=== PATIENT | female | born 1960 | race Caucasian/White ===

== ENCOUNTER → 2016-04-16 | Outpatient (CLI) | payer OTHER ==
[2015-02-05 23:30] VITALS: BP 129/82
[2016-04-16 11:02] LABS: ALBUMIN 3.8 g/dL (3.4-5.0); CALCIUM 9.5 mg/dL (8.5-10.1); CREATININE 0.9 mg/dL (0.6-1.0); FREE T4 0.95 ng/dL (0.76-1.46); GFR 65.2; POTASSIUM 4.4 mmol/L (3.5-5.1); TOTAL BILIRUBIN 0.2 mg/dL (0.2-1.0); TOTAL PROTEIN 7.5 g/dL (6.4-8.2)
[2016-04-16 11:05] LABS: CHOLESTEROL/HDL RATIO 4.9
== END | disposition home or self-care (01) ==
LOC: LAB 09:48
PROVIDERS: ATTEND Nurse Practitioner Family
DX: E11.9 Type 2 diabetes mellitus without complications (principal); E03.9 Hypothyroidism, unspecified
CPT/HCPCS: 36415; 80053; 80061; 83036; 84439; 84443

== ENCOUNTER 2017-02-04 05:10 | Emergency (ER) | payer SELFPAY ==
[~2017-02-04] VITALS: Ht 162.6 cm; Wt 107.7 kg
[2017-02-04 06:22] VITALS: BP 118/86
--- NOTE | 2017-02-04 07:33 | RAD ---
PA and lateral views of the chest were obtained. History: Chest pain Comparison: none The heart and pulmonary vasculature appear within normal limits. The lungs are clear. The pleural margins are clear. Impression: 1. No acute chest process is seen.
--- NOTE | 2017-02-04 07:52 | PHYS DOC ---
Past Medical History Past Medical History: Fibromyalgia, High Cholesterol, Hypertension, Other Additional Past Medical Histor: thyroid issues, chronic back pain Past Surgical History: Cholecystectomy, Hysterectomy, Other Additional Past Surgical Histo: partial hysterectomy, OVARIAN CYST REMOVAL Alcohol Use: Rarely Drug Use: None Adult General Chief Complaint Chief Complaint: RIB PAIN HPI HPI Patient is a 56 year old female who presents ambulatory to the ED with a complaint of right-sided rib pain. The patient says she fell on 01/24 and hurt her ribs. She was seen at an urgent care and told her x-ray was negative, then they called [facility]2 days later and said that she did have 2 broken ribs. She has been using a rib binder that she had at home. Patient states "I'm not here for pain medicine, I don't want to get in trouble with my doctor again". She came in because her ribs started hurting more today. She doesn't know of anything that she did to aggravate the pain. She denies reinjury, does not believe that she coughed or lifted anything heavy. They just started hurting more today and she wants it checked out. She wants to make sure that her lung has not been damaged. Patient denies fever or chills, denies shortness of air. She denies injury anywhere else. Review of Systems Review of Systems Constitutional: Denies fever or chills [] Respiratory: Denies cough or shortness of breath [] Cardiovascular: As in history of present illness Musculoskeletal: Denies back pain or joint pain [] Allergies Allergies Allergies Coded Allergies Type Severity Reaction Last Updated Verified morphine Allergy Intermediate 10/25/14 Yes penicillin Allergy Intermediate 10/25/14 Yes Physical Exam Physical Exam Constitutional: Well developed, well nourished, no acute distress, non-toxic appearance. [] HENT: Normocephalic, atraumatic, bilateral external ears normal, oropharynx moist, no oral exudates, nose normal. [] Eyes: PERRLA, EOMI, conjunctiva normal, no discharge. [] Neck: Normal range of motion, no tenderness, supple, no stridor. [] Cardiovascular:Heart rate regular rhythm, no murmur [] Lungs & Thorax: Bilateral breath sounds clear to auscultation [] Abdomen: Bowel sounds normal, soft, no tenderness, no masses, no pulsatile masses. [] Skin: Warm, dry, no erythema, no rash. [] Back: No tenderness, no CVA tenderness. [] Extremities: No tenderness, no cyanosis, no clubbing, ROM intact, no edema. [] Neurologic: Alert and oriented X 3, normal motor function, normal sensory function, no focal deficits noted. [] Psychologic: Affect normal, judgement normal, mood normal. [] Current Patient Data Vital Signs Vital Signs Date Time Temp Pulse Resp B/P (MAP) Pulse Ox O2 Delivery O2 Flow Rate FiO2 02/04/17 06:22 66 20 118/86 (97) 94 Room Air 02/04/17 05:17 98.2 98.2 EKG EKG [] Radiology/Procedures Radiology/Procedures Two-view chest x-ray read by me. No pneumothorax, no pleural effusion, no infiltrate. I do not see any rib fractures.[] Course & Med Decision Making Course & Med Decision Making Pertinent Labs and Imaging studies reviewed. (See chart for details) 56-year-old female who fell 11 days ago and was diagnosed with fractured ribs at urgent care, comes in for increasing pain in that same area. Chest x-ray negative today. I reassured the patient that cracked or broken ribs could certainly continue to hurt for 4-6 weeks. She has been using a rib binder and I discouraged her from using that except for just on very rare occasions if she needs to to be able to do some type of movement. We talked about how long it will take for rib fractures to start feeling better. See instructions for plan. [] Dragon Disclaimer Dragon Disclaimer This electronic medical record was generated, in whole or in part, using a voice recognition dictation system. Departure Departure Impression: Primary Impression: Rib pain on right side Disposition: 01 HOME, SELF-CARE Condition: STABLE Referrals: [facility]OR[facility] SIL[facility] SKEIN WINDER (PCP) Patient Instructions: Rib Fracture, [id number] Additional Instructions: Cracked or broken rib pain can hurt for 4-6 weeks. It sometimes will be aggravated by movements, coughing, lifting, etc. As we discussed, we do not recommend using a rib binder because that keeps you from taking a deep breath and you can have fluid collect in your lung which can turn into pneumonia. If you must use a rib binder for short periods of time to do a specific activity, you can do that, otherwise do not use it. Ice 15-20 minutes out of every 1 hour. Apply to the area that is most painful. As we discussed, you may use [id number] lidocaine patches to the area that is most painful, use the instructions on the package. ZANE MORRIS MD Feb 04, 2017 07:52
== END 2017-02-04 08:03 | disposition home or self-care (01) ==
LOC: ER 05:10
DX: R07.81 Pleurodynia (principal); M79.7 Fibromyalgia; E78.00 Pure hypercholesterolemia, unspecified; I10 Essential (primary) hypertension; G89.29 Other chronic pain; Z90.711 Acquired absence of uterus with remaining cervical stump; Z90.49 Acquired absence of other specified parts of digestive tract; Z88.0 Allergy status to penicillin; Z88.5 Allergy status to narcotic agent
CPT/HCPCS: 71020; 99284-25

== ENCOUNTER → 2017-02-11 | Outpatient (CLI) | payer OTHER ==
[2017-02-04 06:22] VITALS: BP 118/86
[2017-02-11 09:02] LABS: FREE T4 0.9 ng/dL (0.76-1.46)
[2017-02-11 09:42] LABS: ALBUMIN 3.6 g/dL (3.4-5.0); CALCIUM 8.8 mg/dL (8.5-10.1); CREATININE 1.1 mg/dL (0.6-1.0); GFR 51.8; POTASSIUM 4.5 mmol/L (3.5-5.1); TOTAL BILIRUBIN 0.2 mg/dL (0.2-1.0); TOTAL PROTEIN 7.2 g/dL (6.4-8.2)
--- NOTE | 2017-02-11 09:47 | RAD ---
Abdominal ultrasound, 02/11/2017: History: Abdominal pain The gallbladder is surgically absent. The liver is enlarged measuring 22 cm in craniocaudad extent. Its echogenicity is diffusely increased compatible with fatty change. No hepatic mass is evident. There is no evidence of bile duct dilatation. The common hepatic duct measures 5 mm. The visualized portions of the pancreas, spleen and both kidneys are unremarkable. The abdominal aorta and inferior vena cava show no abnormality. No free fluid is evident in the abdomen. IMPRESSION: 1. Status post cholecystectomy. 2. Hepatomegaly with hepatic steatosis.
== END | disposition home or self-care (01) ==
LOC: US 08:02
PROVIDERS: ATTEND Family Medicine
DX: K76.0 Fatty (change of) liver, not elsewhere classified (principal); E11.9 Type 2 diabetes mellitus without complications; Z76.0 Encounter for issue of repeat prescription; Z90.49 Acquired absence of other specified parts of digestive tract
CPT/HCPCS: 36415; 76700; 80053; 80061; 83036; 84439; 84443

== ENCOUNTER → 2017-06-15 | Outpatient (CLI) | payer OTHER ==
[2017-06-15 10:03] LABS: GLUCOSE 112 mg/dL (70-99)
[2017-06-15 13:36] LABS: GLUCOSE 114 mg/dL (70-99)
== END | disposition home or self-care (01) ==
LOC: LAB 09:15
DX: E11.9 Type 2 diabetes mellitus without complications (principal); I10 Essential (primary) hypertension; E78.00 Pure hypercholesterolemia, unspecified; E03.9 Hypothyroidism, unspecified
CPT/HCPCS: 36415; 82947; 82950

== ENCOUNTER → 2017-12-17 | Outpatient (CLI) | payer OTHER ==
[2017-12-17 11:03] LABS: ALBUMIN 3.7 g/dL (3.4-5.0); CALCIUM 9.3 mg/dL (8.5-10.1); GFR 57.6; POTASSIUM 4.3 mmol/L (3.5-5.1); TOTAL BILIRUBIN 0.3 mg/dL (0.2-1.0); TOTAL PROTEIN 7.3 g/dL (6.4-8.2)
[2017-12-17 11:05] LABS: CHOLESTEROL/HDL RATIO 4.2
--- NOTE | 2017-12-17 18:21 | RAD ---
Thoracic spine, 3 views, 12/17/2017: HISTORY: Mid to lower back pain There are mild scattered marginal spurs. No fracture or dislocation is identified. The paraspinous soft tissues are unremarkable. IMPRESSION: 1. Mild marginal spurring. 2. No acute abnormality is detected. Electronically signed by: Jim Loaiza MD (12/17/2017 6:18 PM) [facility]
--- NOTE | 2017-12-17 18:24 | RAD ---
Lumbar spine, 3 views, 12/17/2017: HISTORY: Back pain Comparison is made to a study from 08/30/2015. The lumbar vertebral heights are well-maintained. There is severe disc space narrowing, endplate sclerosis and marginal spurring at L5-S1. There is a grade 1-2 spondylolisthesis at that level probably due to extensive facet joint arthropathy. Spondylolysis at L5 cannot be excluded. Similar findings were present on the previous study. No new fracture or bony abnormality is detected. Aortic calcific plaquing is present. IMPRESSION: 1. Moderate chronic spondylolisthesis at L5-S1 with severe degenerative disc disease at that level. 2. No significant change since 08/30/2015 Electronically signed by: Jim Loaiza MD (12/17/2017 6:21 PM) [facility]
[2017-12-17 19:14] LABS: HEMOGLOBIN A1C 5.6 % (4.8-5.6)
== END | disposition home or self-care (01) ==
LOC: RAD 10:14
PROVIDERS: ATTEND Nurse Practitioner Family
DX: M43.17 Spondylolisthesis, lumbosacral region (principal); M51.36 Other intervertebral disc degeneration, lumbar region; M48.07 Spinal stenosis, lumbosacral region; M46.07 Spinal enthesopathy, lumbosacral region; I10 Essential (primary) hypertension; L05.01 Pilonidal cyst with abscess
CPT/HCPCS: 36415; 72072; 72100; 80053; 80061; 83036; 84443

== ENCOUNTER → 2018-10-29 | Outpatient (CLI) | payer OTHER ==
[2018-10-29 12:58] LABS: BASO % 1 % (0-3); EOS # 0.2 x10^3/uL (0.0-0.7); EOS % 3 % (0-3); HEMOGLOBIN 15.9 g/dL (12.0-15.5); LYMPH # 2.2 x10^3/uL (1.0-4.8); LYMPH % 30 % (24-48); MEAN CORPUSCULAR HEMOGLOBIN 33 pg (25-35); MEAN CORPUSCULAR HGB CONC 34 g/dL (31-37); MEAN CORPUSCULAR VOLUME 96 fL (79-100); MONO # 0.5 x10^3/uL (0.0-1.1); MONO % 7 % (0-9); NEUT # 4.4 x10^3/uL (1.8-7.7); NEUT % 60 % (31-73); PLATELET COUNT 251 x10^3/uL (140-400); RED BLOOD COUNT 4.88 x10^6/uL (3.50-5.40); RED CELL DISTRIBUTION WIDTH 13.8 % (11.5-14.5); WHITE BLOOD COUNT 7.4 x10^3/uL (4.0-11.0)
[2018-10-29 13:19] LABS: ALBUMIN 3.5 g/dL (3.4-5.0); ALBUMIN/GLOBULIN RATIO 0.9 (1.0-1.7); CALCIUM 9.9 mg/dL (8.5-10.1); CHOLESTEROL/HDL RATIO 4.1; GFR 57.4; POTASSIUM 4.6 mmol/L (3.5-5.1); TOTAL BILIRUBIN 0.2 mg/dL (0.2-1.0); TOTAL PROTEIN 7.3 g/dL (6.4-8.2)
[2018-10-29 13:43] LABS: FREE T4 0.96 ng/dL (0.76-1.46); THYROID STIM HORMONE (TSH) 1.047 uIU/mL (0.358-3.74)
== END | disposition home or self-care (01) ==
LOC: LAB 12:43
PROVIDERS: ATTEND Nurse Practitioner Family
DX: Z13.9 Encounter for screening, unspecified (principal); I10 Essential (primary) hypertension; E78.5 Hyperlipidemia, unspecified; E03.9 Hypothyroidism, unspecified
CPT/HCPCS: 36415; 80053; 80061; 83036; 84439; 84443; 84481; 85025

== ENCOUNTER → 2020-07-05 | Outpatient (CLI) | payer OTHER ==
--- NOTE | 2020-07-05 10:14 | RAD ---
EXAM: Lumbar spine, 2 views. HISTORY: Pain. COMPARISON: None. FINDINGS: 2 views of the lumbar spine are obtained. There is grade 1 anterolisthesis of L5 on S1. The re is degenerative endplate remodeling with disc space narrowing, osteophytosis and facet arthropathy this level. There is slight retrolisthesis of L1 on L2, L2 on L3 and L3 on L4. There is endplate rem odeling at the remainder of the lower thoracic and lumbar levels. There are few small endplate Schmor l's nodes. There are cholecystectomy clips. IMPRESSION: 1. Grade 1 anterolisthesis with advanced is degenerative change at L5-S1. 2. Mild degenerative change at the remainder of the lower thoracic and lumbar levels, described above . Electronically signed by: Sarah Calvert MD (07/05/2020 10:11 AM) [id number]
--- NOTE | 2020-07-05 10:14 | RAD ---
EXAM: Left knee, 2 views. HISTORY: Pain. COMPARISON: None. FINDINGS: 2 views of the left knee are obtained. There is no fracture, dislocation or subluxation. Th ere is medial compartment joint space narrowing and spurring. There is also mild patellar spurring. T here is minimal enthesopathy along the superior patella. There is no significant joint effusion. IMPRESSION: Mild medial compartment and minimal patellofemoral compartment osteoarthritis of the left knee. Electronically signed by: Sarah Calvert MD (07/05/2020 10:12 AM) [id number]
== END ==
LOC: RAD 09:37
PROVIDERS: ATTEND Surgery
DX: Z02.71 Encounter for disability determination (principal); M43.17 Spondylolisthesis, lumbosacral region; M47.817 Spondylosis without myelopathy or radiculopathy, lumbosacral region; M47.815 Spondylosis without myelopathy or radiculopathy, thoracolumbar region; M17.12 Unilateral primary osteoarthritis, left knee; M25.78 Osteophyte, vertebrae; Z90.49 Acquired absence of other specified parts of digestive tract
CPT/HCPCS: 72100; 73560